=== PATIENT | male | born 1955 | race Caucasian/White ===

== ENCOUNTER 2022-08-10 18:23 | Emergency (ER) | payer MEDICAID ==
[~2022-08-10] VITALS: Wt 104.3 kg
[2022-08-10 18:54] LABS: BASO % 0.5 % (0.0-1.0); EOS # 0.2 10*3/uL (0.0-0.4); EOS % 3.3 % (1.0-4.0); HEMATOCRIT 41.7 % (42.0-52.0); LYMPH # 1.9 10*3/uL (1.3-4.4); LYMPH % 31.5 % (27.0-41.0); MEAN CELL VOLUME 90.3 fl (80.0-94.0); MEAN CORPUSCULAR HGB 33.1 pg (27.0-31.0); MEAN CORPUSCULAR HGB CONC 36.7 g/dl (33.0-37.0); MEAN PLATELET VOLUME 9.1 fl (9.6-12.3); MONO # 0.6 10*3/uL (0.1-1.0); MONO % 9.5 % (3.0-9.0); NEUT # 3.3 10*3/uL (2.3-7.9); NEUT % 54.7 % (47.0-73.0); PLATELET COUNT AUTOMATED 157 10*3/uL (130-400); RED BLOOD COUNT 4.62 10*6/uL (4.50-5.90); RED CELL DISTRI WIDTH 12.7 % (0-14.5); WHITE BLOOD COUNT 6.1 10*3/uL (4.8-10.8)
[2022-08-10 19:09] LABS: ALKALINE PHOSPHATASE 69 U/L (46-116); BUN 11 mg/dl (9-23); CHLORIDE 105 mmol/L (98-107); POTASSIUM 3.5 mmol/L (3.4-5.1); SGPT/ALT 22 U/L (10-49); TOTAL PROTEIN 6.7 gm/dL (6.0-8.0)
[2022-08-10 19:19] LABS: ETHYL ALCOHOL < 3.0 mg/dl (<3)
[2022-08-10 21:07] LABS: BILIRUBIN Negative (Negative); BLOOD Trace-Lysed (Negative); CLARITY Cloudy (Clear); COLOR Yellow (Yellow); GLUCOSE Negative (Negative); KETONE Negative (Negative); LEUKO ESTERASE 3+ (Negative); NITRITE Negative (Negative); SPECIFIC GRAVITY <= 1.005 (1.001-1.030)
[2022-08-10 21:15] LABS: BACTERIA 4+; RBC 0-2 rbc/hpf (0-2); URINE AMPHETAMINES Negative (1000ng/ml); URINE BARBITURATES Negative (200ng/ml); URINE BENZODIAZEPINES Negative (200ng/ml); URINE CANNABINOIDS (THC) Negative (50ng/ml); URINE COCAINE Negative (300ng/ml); URINE METHADONE Negative (300ng/ml); URINE OPIATES Negative (300ng/ml); URINE PHENCYCLIDINE Negative (25ng/ml); WBC TNTC wbc/hpf (0-5)
[2022-08-11] MEDS ORDERED: ABILIFY MAINTE400 MG IM (09:51)
[2022-08-11] MEDS ORDERED: FUROSEMIDE40 MG PO (10:06)
[2022-08-11] MEDS ORDERED: ATARAX,VISTARIL50 MG PO (10:06)
[2022-08-11] MEDS ORDERED: JANUVIA100 MG PO (10:07)
[2022-08-11] MEDS ORDERED: LISINOPRIL20 MG PO (10:07)
[2022-08-11] MEDS ORDERED: LAMOTRIGINE200 MG PO (10:07)
[2022-08-11] MEDS ORDERED: METFORMIN HYD1000 MG PO (10:07)
[2022-08-11] MEDS ORDERED: PRAVASTATIN SOD20 MG PO (10:08)
[2022-08-11] MEDS ORDERED: Mysoline50 MG PO (10:08)
[2022-08-11] MEDS ORDERED: OMEPRAZOLE40 MG PO (10:08)
[2022-08-11] MEDS ORDERED: SPIRONOLACTONE50 M1 PO (10:09)
[2022-08-11] MEDS ORDERED: TRAZODONE50 MG PO (10:10)
== END 2022-08-12 09:45 ==
LOC: ED 18:23
PROVIDERS: Student in an Organized Health Care Education/Training Program
DX: T51.92XA Toxic effect of unspecified alcohol, intentional self-harm, initial encounter (principal); X83.8XXA Intentional self-harm by other specified means, initial encounter; F43.21 Adjustment disorder with depressed mood; T50.902A Poisoning by unspecified drugs, medicaments and biological substances, intentional self-harm, initial encounter; Z20.822 Contact with and (suspected) exposure to COVID-19; Y92.89 Other specified places as the place of occurrence of the external cause; Y93.89 Activity, other specified; Y99.8 Other external cause status; Z79.899 Other long term (current) drug therapy